=== PATIENT | male | born 1990 | race African-American/Black ===

== ENCOUNTER → 2020-09-12 | Outpatient (CLI) | payer OTHER ==
--- NOTE | 2020-09-14 07:52 | REP ---
INDICATION: INSOMNIA COMPARISON: None. TECHNIQUE: PA and lateral. FINDINGS: The mediastinum and cardiac silhouette are normal. The lung rodriguez are clear and without acute consolidation, effusion, or pneumothorax. The skeletal structures are intact and normal. IMPRESSION: No acute cardiopulmonary process. <Electronically signed by Carlyle Sommer > 09/14/20 [id number]
== END ==
LOC: M RAD 15:34
PROVIDERS: ATTEND Physician Assistant Medical
DX: G47.00 Insomnia, unspecified (principal)

== ENCOUNTER → 2020-10-03 | Outpatient (CLI) | payer OTHER ==
[2020-10-03 11:58] LABS: APPEARANCE, URINE CLEAR (CLEAR); BACTERIA, URINE AUTO 1+ (NEGATIVE); BASO # 0.1 10^3/uL (0.0-0.2); BASO % 1.1 % (0.0-1.0); BILIRUBIN, URINE AUTO NEGATIVE (NEGATIVE); BLOOD, URINE BLOOD NEGATIVE (NEGATIVE); COLOR, URINE YELLOW (YELLOW); EOS # 0.1 10^3/uL (0.0-0.5); EOS % 1.4 % (0.0-3.0); GLUCOSE, URINE (UA) AUTO NEGATIVE (NEGATIVE); HEMATOCRIT 43.1 % (42.0-52.0); HEMOGLOBIN 13.8 g/dl (13.5-17.5); KETONE, URINE AUTO NEGATIVE (NEGATIVE); LEUKOCYTE ESTERASE, URINE AUTO 2+ (NEGATIVE); LYMPH # 2.9 10^3/uL (1.5-5.0); LYMPH % 53.2 % (24.0-44.0); MEAN CORPUSCULAR HEMOGLOBIN 28.2 pg (27.0-33.0); MONO # 0.8 10^3/uL (0.0-0.8); MONO % 14.1 % (0.0-5.0); MUCUS, URINE SMALL (NEGATIVE); NEUTROPHILS # 1.7 10^3/uL (1.5-8.5); NITRITE, URINE AUTO NEGATIVE (NEGATIVE); PLATELET COUNT, AUTOMATED 243 10^3/uL (150-450); PROTEIN, URINE AUTO NEGATIVE (NEGATIVE); RBC, URINE AUTO 2 /HPF (0-3); SPECIFIC GRAVITY URINE AUTO 1.025 (1.002-1.035); SQUAMOUS EPITHELIAL CELL UR AU 5 /HPF (0-6); UROBILINOGEN, URINE AUTO 0.2 mg/dL (0.0-2.0); WBC, URINE AUTO 21 /HPF (0-3); WHITE BLOOD COUNT 5.5 10^3/uL (4.0-10.0)
[2020-10-03 12:28] LABS: ALBUMIN 3.8 GM/DL (3.2-5.2); ALT/SGPT 67 U/L (12-78); BILIRUBIN,TOTAL 0.5 MG/DL (0.2-1.0); BLOOD UREA NITROGEN 14 MG/DL (7-18); CALCIUM LEVEL 9.8 MG/DL (8.5-10.1); CARBON DIOXIDE LEVEL 30 MEQ/L (21-32); CHLORIDE LEVEL 102 MEQ/L (98-107); CREATININE FOR GFR 0.81 MG/DL (0.70-1.30); GLOMERULAR FILTRATION RATE > 60.0 (>60); GLUCOSE, FASTING 93 MG/DL (70-100); POTASSIUM SERUM 4.2 MEQ/L (3.5-5.1); SODIUM LEVEL 136 MEQ/L (136-145); TOTAL PROTEIN 8.6 GM/DL (6.4-8.2)
[2020-10-03 12:47] LABS: HEPATITIS B SURFACE ANTIGEN NEGATIVE (NEGATIVE)
[2020-10-03 13:13] LABS: HEPATITIS C VIRUS ABY INDEX 0.1 INDEX (<0.8)
[2020-10-03 13:14] LABS: HEPATITIS B CORE ANTIBODY IGM NEGATIVE (NEGATIVE)
[2020-10-03 13:17] LABS: HEPATITIS A ANTIBODY IGM NEGATIVE (NEGATIVE)
== END ==
LOC: M LAB 11:19
PROVIDERS: ATTEND Physician Assistant Medical
DX: Z02.2 Encounter for examination for admission to residential institution (principal)

== ENCOUNTER → 2020-12-11 | Outpatient (CLI) | payer OTHER ==
--- NOTE | 2020-12-15 14:54 | SLEEPHOME ---
DIAGNOSTIC HOME SLEEP STUDY DATE: 12/11/2020 ORDERED BY: Rene Montes M.D. Diagnostic home sleep testing was performed due to concern for the obstructive sleep apnea syndrome in this patient with a history of excessive somnolence and morning headaches. For testing, a nocturnal T3 respiratory monitoring device was used. Continuous record was made of pulse, oxygen saturation, air flow, chest and abdominal strain, and body position. 9 hours and 59 minutes of data were reviewed. There were 8 hours and 28 minutes marked as time in bed. During the interval marked time in bed, there were 659 respiratory events identified of 10 seconds in duration or greater for a respiratory event index 77.8. The events were primarily obstructive; however, 182 mixed and central apneas were also seen. Baseline pulse rate 78. Pulse rate range 58 to 120. Baseline saturation was 89%. Saturations fell to 53%. Testing was performed in both the supine and non-supine positions. IMPRESSION: Abnormal home sleep testing, with repetitive respiratory events and oxygen desaturations to 53% with a respiratory event index of 77.8, is consistent with the obstructive sleep apnea syndrome. RECOMMENDATION: The patient should be encouraged to undergo a formal sleep evaluation. Given the occurrence of central apneas, a BiLevel device and backup rate may be necessary for treatment.
== END ==
LOC: M SLEEP HO 11:14
PROVIDERS: ATTEND Internal Medicine Pulmonary Disease
DX: G47.30 Sleep apnea, unspecified (principal)

== ENCOUNTER 2021-02-11 11:18 | Emergency (ER) | payer OTHER ==
[~2021-02-11] VITALS: Ht 185.4 cm; Wt 123.0 kg
[2021-02-11 11:18] VITALS: BP 133/90
[2021-02-11] MEDS ORDERED: GI COCKTAIL 50ML BTL(HYOSCYAMINE/MAALOX/LIDOCAINE VISCOUS)(1:3:1) PO ONE (13:05)
[2021-02-11] MEDS ORDERED: ONDANSETRON 4MG/2ML VIAL IV ONE (13:05)
[2021-02-11 13:13] LABS: BASO % 0.9 % (0.0-1.0); EOS % 0.5 % (0.0-3.0); HEMATOCRIT 42.1 % (42.0-52.0); HEMOGLOBIN 13.7 g/dl (13.5-17.5); LYMPH # 1.8 10^3/uL (1.5-5.0); LYMPH % 39.9 % (24.0-44.0); MEAN CORPUSCULAR HEMOGLOBIN 28.5 pg (27.0-33.0); MEAN CORPUSCULAR HGB CONC 32.5 g/dl (32.0-36.5); MEAN CORPUSCULAR VOLUME 87.5 fl (80.0-96.0); MONO # 0.7 10^3/uL (0.0-0.8); MONO % 15.9 % (2.0-8.0); NEUTROPHILS # 1.9 10^3/uL (1.5-8.5); NEUTROPHILS % 42.6 % (36.0-66.0); PLATELET COUNT, AUTOMATED 255 10^3/uL (150-450); RED BLOOD COUNT 4.81 10^6/uL (4.30-6.10); WHITE BLOOD COUNT 4.4 10^3/uL (4.0-10.0)
[2021-02-11 13:38] LABS: ALBUMIN 3.6 GM/DL (3.2-5.2); ALT/SGPT 101 U/L (12-78); BILIRUBIN,DIRECT 0.1 MG/DL (0.0-0.2); BILIRUBIN,TOTAL 0.5 MG/DL (0.2-1.0); CK-MB VALUE MASS < 1.0 NG/ML (<3.6); CPK CREATINE PHOSPHOKINASE 310 U/L (39-308); LIPASE 97 U/L (73-393); MB/CK RELATIVE INDEX 0.32 (< OR =4); TROPONIN I < 0.02 NG/ML (< 0.10)
[2021-02-11] MEDS ORDERED: KETOROLAC 30 MG/ML 1ML VIAL IV ONE (14:45)
--- NOTE | 2021-02-11 15:19 | REP ---
INDICATION: epigastric pain. COMPARISON: None. FINDINGS: Supine and upright views of the abdomen show the intestinal gas pattern to be nonspecific. Gas and stool is seen throughout the colon within the rectosigmoid region. The organ silhouettes insofar as delineated appear unremarkable. No abdominal calcific densities are seen within the abdomen or pelvis. The accompanying single frontal view of the chest shows no free subdiaphragmatic air, cardiomegaly, infiltrates or effusions. IMPRESSION: Nonspecific intestinal gas pattern. No evidence of an acute abnormality. <Electronically signed by Montana Quintana > 02/11/21 [id number]
--- NOTE | 2021-02-11 15:26 | REP ---
INDICATION: epigastric pain, elevated lfts. FINDINGS: Multiple ultrasonographic images of the liver show diffuse increased echoes throughout the hepatic parenchyma without evidence of a mass or ductal dilatation. The common bile duct measures approximately 5 mm in its greatest transverse dimension. Multiple ultrasonographic images of the gallbladder show no focal or diffuse gallbladder wall thickening. There are no echogenic foci within the gallbladder lumen, which casts acoustic shadows. There is no pericholecystic edema. Images of the pancreatic region show no gross abnormality. The imaged portion of the right kidney is unremarkable. IMPRESSION: Fatty infiltration of the liver. Accredited by the [employer] in General Ultrasound. <Electronically signed by Montana Quintana > 02/11/21 [id number]
[2021-02-11] MEDS ORDERED: ONDA4TAB6 PO (16:14)
[2021-02-11] MEDS ORDERED: CARA1TAB6 PO (16:14)
[2021-02-11] MEDS ORDERED: PROT1TAB2 PO (16:14)
--- NOTE | 2021-02-12 08:06 | ECGEPIP ---
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
== END 2021-02-11 16:55 | disposition home or self-care (01) ==
LOC: M ED 11:18
DX: R10.9 Unspecified abdominal pain (principal); R11.2 Nausea with vomiting, unspecified; K76.0 Fatty (change of) liver, not elsewhere classified
CPT/HCPCS: 74021; 76705; 80047; 80076; 82550; 82553; 83690; 85025; 93005; 96374; 96375; 99284; J1885; J2405

== ENCOUNTER 2021-04-05 17:59 | Inpatient (IN) | payer OTHER ==
[~2021-04-05] VITALS: Ht 188 cm; Wt 123.8 kg
[~2021-04-05 17:59] MED LIST: CARA1TAB6 PO; ONDA4TAB6 PO; PROT1TAB2 PO
[2021-04-05 18:52] LABS: VENOUS HCO3 23.8 MEQ/L (23.0-27.0); VENOUS O2 SATURATION 94.9 % (60.0-80.0); VENOUS PARTIAL PRESSURE CO2 39.8 mmHg (38.0-50.0); VENOUS PARTIAL PRESSURE O2 77.1 mmHg (30.0-50.0); VENOUS PH 7.394 UNITS (7.330-7.430); VENOUS STANDARD HCO3 23.6 MEQ/L
[2021-04-05 18:56] LABS: HEMATOCRIT 39.6 % (42.0-52.0); HEMOGLOBIN 13.1 g/dl (13.5-17.5); MEAN CORPUSCULAR HEMOGLOBIN 28.7 pg (27.0-33.0); MEAN CORPUSCULAR HGB CONC 33.1 g/dl (32.0-36.5); MEAN CORPUSCULAR VOLUME 86.8 fl (80.0-96.0); PLATELET COUNT, AUTOMATED 307 10^3/uL (150-450); RED BLOOD COUNT 4.56 10^6/uL (4.30-6.10); WHITE BLOOD COUNT 8.1 10^3/uL (4.0-10.0)
[2021-04-05] MEDS ORDERED: HumuLIN R (REGULAR) INSULIN (NovoLIN R) **100U/ML** PER UNIT IV ONE (19:15)
[2021-04-05 19:16] LABS: OSMOLALITY SERUM 296 MOSM/KG (275-295)
[2021-04-05 19:40] LABS: ACETONE/KETONE 9.96 MG/DL (<2.81); ALT/SGPT 63 U/L (12-78); BILIRUBIN,DIRECT 0.2 MG/DL (0.0-0.2); BILIRUBIN,TOTAL 0.5 MG/DL (0.2-1.0); LIPASE 297 U/L (73-393); TOTAL PROTEIN 8.2 GM/DL (6.4-8.2)
[2021-04-05 19:59] LABS: ATYPICAL LYMPH 2 % (0-5); BASOPHILS 2 % (0-1); EOSINOPHILS 3 % (0-3); LYMPHOCYTES 26 % (16-44); MONOCYTES 6 % (0-5); NEUTROPHILS 59 % (28-66); PLASMA CELL 1 % (0-0)
[2021-04-05 20:00] LABS: OVALOCYTES 1+; PLATELET ESTIMATE NORMAL (NORMAL); POIKILOCYTOSIS 1+
[2021-04-05] MEDS ORDERED: NS 1,000 ML IV ONE ×2 (20:00→20:05)
[2021-04-05 20:32] LABS: HEMOGLOBIN A1c 9.5 %
--- NOTE | 2021-04-05 20:33 | ECGEPIP ---
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
[2021-04-05] MEDS ORDERED: VANCOMYCIN HCL 1,000 MG in IV FLUID PLACE HOLDER 1 EA IV ONE (20:35)
[2021-04-05] MEDS ORDERED: HOME MED LIST COMPLETE! XX SCH (20:40)
[2021-04-05] MEDS ORDERED: atenoloL 25 MG TAB PO ONE (20:45)
[2021-04-05] MEDS ORDERED: ASPIRIN 81 MG CHEW TABLET PO ONE (20:50)
[2021-04-05] MEDS ORDERED: VANCOMYCIN HCL 1,000 MG, VIAL MATE ADAPTER 1 EACH in NS 250 ML IV ONE (21:00)
--- NOTE | 2021-04-05 21:53 | REPVR ---
PROCEDURE INFORMATION: Exam: US Duplex Left Lower Extremity Veins, Limited Exam date and time: 04/05/2021 9:01 PM Age: 30 years old Clinical indication: Swelling (edema) of limb; Lower extremity, left TECHNIQUE: Imaging protocol: Real-time Duplex ultrasound of the Left Lower Extremity with 2-D balderas scale, color Doppler flow and spectral waveform analysis with image documentation. Limited exam focused on the left lower extremity veins. COMPARISON: No relevant prior studies available. FINDINGS: Left deep veins: Unremarkable. The common femoral, femoral, proximal profunda femoral and popliteal veins are patent without thrombus. Normal Doppler waveforms. Normal compressibility and/or augmentation response. Left superficial veins: Unremarkable. Saphenofemoral junction is patent without thrombus. Soft tissues: Unremarkable. IMPRESSION: No evidence of deep vein thrombosis. Electronically signed by: Abram Talley On 04/05/2021 21:52:44 PM
[2021-04-05 22:27] LABS: RSV AMPLIFICATION NEGATIVE (NEGATIVE)
[2021-04-05] MEDS ORDERED: INSULIN REGULAR IN 0.9 % NACL 100 UNIT in IV 1 EA IV SCH ×2 (23:15)
[2021-04-05] MEDS ORDERED: VANCOMYCIN HCL 1,000 MG, VIAL MATE ADAPTER 1 EACH in NS 250 ML IV SCH (23:15)
[2021-04-05] MEDS: RIVAROXABAN 20 MG TAB (XARELTO) PO SCH (23:15)
--- NOTE | 2021-04-05 23:24 | HPEPDOC ---
[facility] Medical History & Physical Date of Admission Apr 05, 2021 Date of Service: Apr 05, 2021 History and Physical CHIEF COMPLAINT: Left leg pain and swelling HISTORY OF PRESENT ILLNESS: 22-year-old male with history of insulin dependent diabetes, atrial flutter, NURIS (not on CPAP), blindness in the left eye, status post trauma, presented to the ER with a 4 day history of worsening swelling and redness and pain of the left lateral leg after he developed folliculitis with acne that was popped by his girlfriend. He has similar presentation of his right leg swelling of the left leg is much more pronounced. Venous ultrasound in the ER shows no evidence for deep vein thrombosis. Patient was also found to have blood sugars of 530 with elevated ketones. Patient had initial gap of 19, with a pH 7.3 on ABG. Patient received 12 units of regular insulin. However, blood sugars remained in the 400s. Decision was to place patient on insulin infusion and admitted to ICU for titration. She was started on IV vancomycin for sylvie atment of synovitis of the left lower extremity, which likely precipitated the HHS. Patient was admitted to ICU for the management of age at bedtime and encephalitis. Of note, EKG showing atrial flutter with a rate of 110. ER contacted Dr. Bernardo recommended starting atenolol 25 mg. The patient reports having a prior history of atrial flutter and he underwent a cardioversion at [facility] in [place], [place] and was anticoagulated with Xarelto. He has not been on blood thinner for over a year. Dr. Bernardo recommended started back on Xarelto, despite having a low CHADSVASC score, as patient has other RF including NURIS and obesity. PAST MEDICAL HISTORY: IDDM NURIS A flutter s/p cardioversion, not on AC Blind in L eye, s/p trauma, retinal detachment. PAST SURGICAL HISTORY: L eye retinal detachment, repain SOCIAL HISTORY: smokes occasionally denies illicit drug use occasional etoh use FAMILY HISTORY: reviewed with patient, no pertinent history was provided ALLERGIES: Please see below. REVIEW OF SYSTEMS: 10 point ROS conducted, relevant findings are noted in the HPI. HOME MEDICATIONS: Please see below. PHYSICAL EXAMINATION: VITAL SIGNS: please see below General: NAD, comfortable HEENT: PERRLA, EOMI, sclerae clear Neck: supple, normal ROM, no JVD Respiratory: lungs CTAB, no wheeze, no rales, no crackles CVS: RRR, normal S1, S2, no murmurs Abdo: soft, no masses, no hepatosplenomegaly, BS+, no rebound tenderness Extremities: no edema, pulses 2+ MSK: no joint deformities, normal ROM Neuro: no focal neuro deficits, moving all 4 extremities, CN2-12 intact. Strength 5/5 in all 4 extremities. No nystagmus. Psych: calm, cooperative, AAO x 3 LABORATORY DATA: See below. IMAGING: L venous duplex LE (04/05/21): No evidence of deep vein thrombosis. MICROBIOLOGY: Please see below. ASSESSMENT: 30 yo M with a hx of IDDM (uncontrolled), NURIS, A flutter (not on AC, s/p cardioversion), presented with a 4 day hx of L leg swelling, pain, redness. Found to have BG > 550 in ER. EKG showing a flutter, rate 110. Admitted for HHS, 2/[address] Bernardo recommending atenolol and to start xarelto with referal to cardiology for outpatient cardiac ablation. . PLAN: #HHS - non compliant with insulin, eating lots of sugary foods - precipitated by cellulitis - AG 19. BG > 400 s/p 12 units reg insulin - start Insulin ggt, admit to ICU - BMP, mg, phos q4h - 0.45% NS at 200 cc/hr - CC diet - will bridge with levemir once BG < 250. #Cellulitis of LLE - L leg, popped his folliculitis/acne - started on IV vanco - venous duplex shows no DVT in L leg #A flutter - Rate 110 in ER, EKG showing aflutter - has prior hx, no long on AC - D/w Dr. Bernardo. Give atenolol 25 mg daily, can titrate to 50 mg daily - start xarelto, even though low CHADSVASC score - will need referral to cardiology for ablation #NURIS - ordered Noc Ox - had home sleep study, needs formal eval per Dr. Dietz's note - titrate O2 overnight. DVT ppx: started on xarelto. Vital Signs Vital Signs Date Time Temp Pulse Resp B/P (MAP) Pulse Ox O2 Delivery O2 Flow Rate FiO2 04/05/21 22:08 92 15 100 Room Air 04/05/21 22:00 134/92 (106) 04/05/21 19:56 99.3 Laboratory Data Labs 24H Laboratory Tests 2 04/05/21 18:32: Neutrophils (%) (Auto) , Nucleated Red Blood Cells % (auto) 0.0, Neutrophils 59, Band Neutrophils 1, Lymphocytes (Manual) 26, Monocytes (Manual) 6H, Eosinophils (Manual) 3, Basophils (Manual) 2H, Atypical Lymphocytes 2, Plasma Cells 1H, Poikilocytosis 1+, Ovalocytes 1+, Platelet Estimate NORMAL, Urine Color STRAW, Urine Appearance CLEAR, Urine pH 6.0, Urine Specific [place] 1.029, Urine Protein NEGATIVE, Urine Glucose (UA) 3+H, Urine Ketones 1+H, Urine Blood 1+H, Urine Nitrite NEGATIVE, Urine Bilirubin NEGATIVE, Urine Urobilinogen 0.2, Urine Leukocyte Esterase NEGATIVE, Urine WBC (Auto) 0, Urine RBC (Auto) 1, Urine Hyaline Casts (Auto) 0, Urine Bacteria (Auto) NEGATIVE, Urine Squamous Epithelial Cells 0, Urine Sperm (Auto) , Blood Gas Bicarbonate Standard 23.6, Venous Blood pH 7.394, Venous Blood Partial Pressure CO2 39.8, Venous Blood Partial Pressure O2 77.1H, Venous Blood Total Carbon Dioxide 25.0, Venous Blood HCO3 23.8, Venous Blood Oxygen Saturation 94.9H, Venous Blood Base Excess -1.0, Estimated Mean Plasma Glucose 226H, Hemoglobin A1c 9.5, Osmolality 296H, Total Bilirubin 0.5, Direct Bilirubin 0.2, Aspartate Amino Transf (AST/SGOT) 54H, Alanine Aminotransferase (ALT/SGPT) 63, Alkaline Phosphatase 70, Total Protein 8 .2, Albumin 3.0L, Albumin/Globulin Ratio 0.6, Lipase 297, B-Hydroxybutyrate 9.96H 04/05/21 18:49: POC Glucose (Misc Panel) 559*H, POC Sodium (Misc Panel) 129L, POC Potassium (Misc Panel) 4.8, POC Chloride (Misc Panel) 94L, POC Total CO2 (Misc Panel) 23.0, POC Blood Urea Nitrogen (Misc Panel 16, POC Ionized Calcium (Misc Panel) 4.3L, POC Creatinine (Misc Panel) 0.7, POC Hematocrit (Misc Panel) 42.0 04/05/21 19:38: Bedside Glucose (Misc Panel) 494H 04/05/21 20:42: Bedside Glucose (Misc Panel) 456H 04/05/21 21:24: Coronavirus (COVID-19)(PCR) NEGATIVE, Influenza Type A (RT-PCR) NEGATIVE, Influenza Type B (RT-PCR) NEGATIVE, Respiratory Syncytial Virus (PCR) NEGATIVE CBC/BMP Laboratory Tests 04/05/21 18:32 Microbiology Microbiology 04/05/21 Blood Culture, Received Pending 04/05/21 Blood Culture, Received Pending Home Medications No Active Prescriptions or Reported Meds Allergies Coded Allergies: No Known Drug Allergies (Verified Allergy, Unknown, 02/11/21) BRENDA GARY MD Apr 05, 2021 23:24
[2021-04-05 23:50] LABS: BLOOD UREA NITROGEN 13 MG/DL (7-18); GLUCOSE, FASTING 531 MG/DL (70-100)
[2021-04-05 23:51] LABS: CALCIUM LEVEL 8.1 MG/DL (8.5-10.1); CARBON DIOXIDE LEVEL 21 MEQ/L (21-32); CHLORIDE LEVEL 97 MEQ/L (98-107); CREATININE FOR GFR 0.94 MG/DL (0.70-1.30); GLOMERULAR FILTRATION RATE > 60.0 (>60); MAGNESIUM LEVEL 2.1 MG/DL (1.8-2.4); POTASSIUM SERUM 4.4 MEQ/L (3.5-5.1); SODIUM LEVEL 128 MEQ/L (136-145)
[2021-04-05] MEDS: NS 0.45% 1,000 ML IV SCH (23:52)
[2021-04-06] VITALS (8 sets, daily range): BP systolic 112–142; BP diastolic 69–81
[2021-04-06 00:35] LABS: INR 1.01; PROTHROMBIN TIME 13.7 SECONDS (12.7-14.5)
[2021-04-06] MEDS: NS 0.45% 1,000 ML IV SCH ×2 (00:58→08:07)
[2021-04-06] MEDS: VANCOMYCIN HCL 750 MG, VIAL MATE ADAPTER 1 EACH in NS 250 ML IV SCH ×6 (01:07→17:39)
[2021-04-06 02:32] LABS: BLOOD UREA NITROGEN 11 MG/DL (7-18); CALCIUM LEVEL 7.9 MG/DL (8.5-10.1); CARBON DIOXIDE LEVEL 25 MEQ/L (21-32); CHLORIDE LEVEL 101 MEQ/L (98-107); CREATININE FOR GFR 0.79 MG/DL (0.70-1.30); GLOMERULAR FILTRATION RATE > 60.0 (>60); GLUCOSE, FASTING 340 MG/DL (70-100); MAGNESIUM LEVEL 2.2 MG/DL (1.8-2.4); PHOSPHORUS LEVEL 2.4 MG/DL (2.5-4.9); POTASSIUM SERUM 3.7 MEQ/L (3.5-5.1); SODIUM LEVEL 133 MEQ/L (136-145)
[2021-04-06] MEDS: INSULIN IV RATE CHANGE DOCUMENTATION ML/HR XX SCH ×4 (04:14→10:52)
[2021-04-06 05:37] LABS: BLOOD UREA NITROGEN 10 MG/DL (7-18); CALCIUM LEVEL 7.8 MG/DL (8.5-10.1); CARBON DIOXIDE LEVEL 26 MEQ/L (21-32); CHLORIDE LEVEL 103 MEQ/L (98-107); GLOMERULAR FILTRATION RATE > 60.0 (>60); GLUCOSE, FASTING 286 MG/DL (70-100); MAGNESIUM LEVEL 2.2 MG/DL (1.8-2.4); PHOSPHORUS LEVEL 2.7 MG/DL (2.5-4.9); POTASSIUM SERUM 4.1 MEQ/L (3.5-5.1); SODIUM LEVEL 135 MEQ/L (136-145)
[2021-04-06] MEDS ORDERED: atenoloL 25 MG TAB PO SCH (09:00)
[2021-04-06] MEDS: LEVEMIR (INSULIN DETEMIR) 1 UNITS/0.01ML SC SCH (09:46)
[2021-04-06 10:25] LABS: BLOOD UREA NITROGEN 10 MG/DL (7-18); CALCIUM LEVEL 8.3 MG/DL (8.5-10.1); CARBON DIOXIDE LEVEL 24 MEQ/L (21-32); CHLORIDE LEVEL 103 MEQ/L (98-107); CREATININE FOR GFR 0.76 MG/DL (0.70-1.30); GLOMERULAR FILTRATION RATE > 60.0 (>60); GLUCOSE, FASTING 312 MG/DL (70-100); MAGNESIUM LEVEL 2.1 MG/DL (1.8-2.4); PHOSPHORUS LEVEL 2.7 MG/DL (2.5-4.9); POTASSIUM SERUM 3.7 MEQ/L (3.5-5.1); SODIUM LEVEL 134 MEQ/L (136-145)
[2021-04-06 10:42] LABS: THYROID STIMULATING HORMONE 0.826 uIU/ML (0.358-3.740)
--- NOTE | 2021-04-06 13:03 | REP ---
INDICATION: r/o abscess left calf lower leg area. COMPARISON: None. TECHNIQUE: Ultrasonography of the lateral aspect of the left calf in area of redness and swelling. FINDINGS: Ultrasonography at the lateral left calf identifies diffuse subcutaneous soft tissue edema in the proximal, mid and distal lateral calf. Additionally, at the lateral mid calf level there are 2 fluid collections at the skin surface, clinically appearing as blisters, measurin.9 x 0.4 x 1.0 cm and 0.9 x 0.4 x 0.5 cm. IMPRESSION: Diffuse subcutaneous soft tissue edema of the left calf laterally. At the left mid calf laterally there are 2 superficial fluid collections, clinically appearing as blisters, as described above. No other focal fluid collections are identified. <Electronically signed by Clive Dow > 04/06/21 0154
[2021-04-06] MEDS: HumaLOG INSULIN (NovoLOG) PER UNIT SC SCH ×3 (13:05→22:34)
--- NOTE | 2021-04-06 13:56 | IPNPDOC ---
Text Note Date of Service The patient was seen on 04/06/21. NOTE S: Pt seen and evaluated at bedside this AM. He tells me he "feels fine." Repo rts unimproved LLE soreness. He tells me he has not formally been diagnosed w/ diabetes and was not put on insulin or medication for it. Denies hx IV drug use. Denies chest pain, palpitations, SOB, tremors, perspiration, lightheadedness. O: GEN: laying in bed, alert and awake, NAD HEENT: NC/AT, EOMI, nares patent, dry mucous membranes CARDIO: normal heart sounds, RRR, no MRG PULM: CTA b/l, no WRR, no accessory muscles used ABD: decreased BS, soft, nontender, nondistended EXTREMITIES: normal ROM; LLE 2+ pitting edema, multiple sites of active folliculitis w/ bloody discharge along lateral LLE, redness, warm, no crepitus or soft tissue abscesses appreciated; RLE edema, multiple sites of active folliculitis w/out discharge, warm, no redness IMAGING: Duplex vascular u/s LLE No evidence of deep vein thrombosis Nonvascular LLE u/s Diffuse subcutaneous soft tissue edema of the left calf laterally. At the left mid calf laterally there are 2 superficial fluid collections, clinically appearing as blisters, as described above. No other focal fluid collections are identified. A/P: 30M PMH DM2 (uncontrolled), NURIS (noncompliant CPAP), Aflutter s/p cardioversion, w/ acute cellulitis LLE on IV vancomycin day1, found to have fasting glucose 531 (04/05) which has improved to 286 following insulin drip 100ml/hr x12hrs. #Hyperosmolar Hyperglycemic Syndrome, most likely 2/2 noncompliant insulin use, acute infxn- improving On insulin drip. Will bridge to levemir Start levemir 60U Monitor labs, FSBS #Acute cellulitis LLE s/p trauma to folliculitis acne Blood cx pending Wound cx pending LLE soft tissue u/s as noted above On IV vancomycin, day1 #Aflutter s/p cardioversion- rate poorly controlled Pt continues to go in and out of tachycardia (88-110bpm) TSH 0.826 Start Metoprolol D/c Atenolol On Xarelto. CHADsVASc score 1. Consider ablation if worsening Aflutter #NURIS Titrate nocturnal O2 overnight Pt needs formal sleep study, per Dr. Dietz #DVT Prophylaxis On Xarelto DISPO: transfer to PCU status, pending titrate off insulin drip Activity as tolerated Diabetic diet VS,Fishbone, I+O VS, Fishbone, I+O Laboratory Tests 04/05/21 18:32 04/06/21 02:02 04/06/21 04:56 04/06/21 09:50 Vital Signs Date Time Temp Pulse Resp B/P (MAP) Pulse Ox O2 Delivery O2 Flow Rate FiO2 04/06/21 09:31 110 112/81 04/06/21 08:00 97.0 20 98 Room Air I&O- Last 24 Hours up to 6 AM 04/06/21 06:00 Intake Total 1930 ml Output Total 800 ml Balance 1130 ml Sena Barker DO Apr 06, 2021 13:56
[2021-04-06] MEDS: RIVAROXABAN 20 MG TAB (XARELTO) PO SCH (17:38)
[2021-04-06] MEDS ORDERED: METOPROLOL TART 12.5 MG PER 1/2 TAB PO SCH (21:00)
[2021-04-06] MEDS: METOPROLOL TART 25 MG TABLET PO SCH (22:34)
[2021-04-07] VITALS (7 sets, daily range): BP systolic 117–139; BP diastolic 72–89
--- NOTE | 2021-04-07 00:51 | ECHO ---
ECHOCARDIOGRAM DATE OF PROCEDURE: 04/06/2021 Age: 30 Gender: Male Height: 188 cm Weight: 118 kg REFERRING PHYSICIAN: Dr. Galileo Storm INDICATION: Cardiac dysrhythmia MEASUREMENTS: IVS 1.3 cm LV 5.0 cm LVPW 1.3 cm LA 3.7 cm Aorta 3.5 cm LA volume 27 FINDINGS: This study is of good technical quality. Patient is in atrial flutter with controlled ventricular rate. Left ventricle is normal size. Mild left ventricular hypertrophy is noted. Overall normal LV systolic function with estimated EF around 60 to 65%. Normal RV size and systolic function. Both atria are normal. All four cardiac valves were reasonably well seen and appear normal based on 2D imaging. No pericardial effusion. Inferior vena cava was not seen. Aortic root and aortic arch were normal. Abdominal aorta was not visualized. Doppler interrogation reveals competent aortic, mitral and pulmonic valves. There is trace tricuspid insufficiency. Normal pulmonary artery pressure based on fair quality TR jet. Diastolic function was not evaluated due to underlying atrial flutter. CONCLUSIONS: 1. Study is of good technical quality, underlying atrial flutter with controlled ventricular rate. 2. Normal LV size with normal LV systolic function. 3. Normal RV size and systolic function. 4. No significant valvular disease. 5. Unable to estimate central venous pressure, but likely normal pulmonary artery pressure.
[2021-04-07] MEDS: VANCOMYCIN HCL 750 MG, VIAL MATE ADAPTER 1 EACH in NS 250 ML IV SCH ×6 (01:23→18:24)
[2021-04-07] MEDS: HumaLOG INSULIN (NovoLOG) PER UNIT SC SCH ×4 (07:43→20:59)
[2021-04-07 08:25] LABS: HEMATOCRIT 40.2 % (42.0-52.0); HEMOGLOBIN 13.2 g/dl (13.5-17.5); MEAN CORPUSCULAR HEMOGLOBIN 28.2 pg (27.0-33.0); MEAN CORPUSCULAR HGB CONC 32.8 g/dl (32.0-36.5); MEAN CORPUSCULAR VOLUME 85.9 fl (80.0-96.0); PLATELET COUNT, AUTOMATED 317 10^3/uL (150-450); RED BLOOD COUNT 4.68 10^6/uL (4.30-6.10); WHITE BLOOD COUNT 5.9 10^3/uL (4.0-10.0)
[2021-04-07] MEDS: METOPROLOL TART 25 MG TABLET PO SCH (08:32)
[2021-04-07] MEDS: LEVEMIR (INSULIN DETEMIR) 1 UNITS/0.01ML SC SCH (08:33)
--- NOTE | 2021-04-07 08:43 | IPNPDOC ---
Text Note Date of Service The patient was seen on 04/07/21. NOTE S: Pt seen and evaluated at bedside this AM. Reports improved LLE soreness w/ better mobility. He tells me he was +MRSA following nasal swab 5-6yrs ago, but cannot recall abx he was treated w/ at the time. Denies prior cellulitis infxn. Denies fevers/chills, chest pain, palpitations, SOB, tremors, perspiration, lightheadedness. O: GEN: sitting on edge of bed eating breakfast, alert and awake, NAD HEENT: NC/AT, EOMI, nares patent, dry mucous membranes CARDIO: normal heart sounds, RRR, no MRG PULM: CTA b/l, no WRR, no accessory muscles used ABD: normal BS, soft, nontender, nondistended EXTREMITIES: normal ROM; LLE 2+ pitting edema, multiple sites of active folliculitis w/ serosanguinous discharge along lateral LLE, redness, no warmth/crepitus/soft tissue abscesses appreciated; RLE edema, multiple sites of active folliculitis w/out discharge/warmth/redness IMAGING: Duplex vascular u/s LLE (04/05) No evidence of deep vein thrombosis Nonvascular LLE u/s (04/06) Diffuse subcutaneous soft tissue edema of the left calf laterally. At the left mid calf laterally there are 2 superficial fluid collections, clinically appearing as blisters, as described above. No other focal fluid collections are identified. Echocardiogram (04/06) Report pending A/P: 30M PMH DM2 (uncontrolled), NURSI (noncompliant CPAP), Aflutter s/p cardioversion, MRSA+, w/ acute cellulitis LLE on IV vancomycin day2 w/ improved sx, found to have poorly controlled BS now on 40 Levemir BID and insulin SS. #Hyperosmolar Hyperglycemic Syndrome, most likely 2/2 noncompliant insulin use, acute infxn- RESOLVED #Hyperglycemia 2/2 DM1 vs DM1.5 vs DM2- poorly controlled Pt remains hyperglycemic w/ BS 305 On Levemir 40BID, insulin SS Ab (anti islet, antiu [id number], anti znt8) w/u pending Monitor labs #Acute cellulitis LLE s/p trauma to folliculitis acne- improving Prelim blood cx (24hrs) negative Wound cx pending LLE soft tissue u/s as noted above On IV vancomycin, day2 Recommend keeping b/l LE elevated to min swelling Pt's cellutlitis infxn marked and monitored #Aflutter s/p cardioversion- rate poorly controlled Pt in and out of 2:1 Aflutter w/ HR 130-140 w/ standing Echo wnl, LVEF 65%, report pending TSH 0.826 On Metoprolol 50 BID, w/ hold parameters HR <60 Start Eliquis D/c Xarelto. CHADsVASc score 1 Repeat EKG Urine tox screen pending Cardiology consult outpt- consider cardioversion/ablation due to uncontrolled Aflutter #MRSA+ VIP status #NURIS Titrate nocturnal O2 overnight Pt needs formal sleep study, per Dr. Dietz #DVT Prophylaxis Start Eliquis D/c Xarelto DISPO: PCU, pending clinical improvement Activity as tolerated Diabetic diet VS,Fishbone, I+O VS, Fishbone, I+O Laboratory Tests 04/06/21 09:50 04/07/21 08:14 Vital Signs Date Time Temp Pulse Resp B/P (MAP) Pulse Ox O2 Delivery O2 Flow Rate FiO2 04/07/21 08:32 141 119/73 04/07/21 08:00 96.9 18 97 Room Air I&O- Last 24 Hours up to 6 AM 04/07/21 06:00 Intake Total 5830 ml Output Total 1325 ml Balance 4505 ml Sena Barker DO Apr 07, 2021 08:43
[2021-04-07 08:50] LABS: BLOOD UREA NITROGEN 8 MG/DL (7-18); CALCIUM LEVEL 9.2 MG/DL (8.5-10.1); CARBON DIOXIDE LEVEL 25 MEQ/L (21-32); CHLORIDE LEVEL 102 MEQ/L (98-107); CREATININE FOR GFR 0.73 MG/DL (0.70-1.30); GLOMERULAR FILTRATION RATE > 60.0 (>60); GLUCOSE, FASTING 305 MG/DL (70-100); POTASSIUM SERUM 4.3 MEQ/L (3.5-5.1); SODIUM LEVEL 133 MEQ/L (136-145); VANCOMYCIN LEVEL TROUGH 11.8 UG/ML (10.0-20.0)
[2021-04-07] MEDS ORDERED: LEVEMIR (INSULIN DETEMIR) 1 UNITS/0.01ML SC ONE (09:00)
[2021-04-07 09:37] LABS: ATYPICAL LYMPH 5 % (0-5); BASOPHILS 1 % (0-1); EOSINOPHILS 2 % (0-3); LYMPHOCYTES 37 % (16-44); MONOCYTES 2 % (0-5); NEUTROPHILS 53 % (28-66)
[2021-04-07 09:38] LABS: ANISOCYTOSIS 1+; PLATELET ESTIMATE NORMAL (NORMAL); POLYCHROMASIA 1+
[2021-04-07] MEDS ORDERED: METOPROLOL TART 25 MG TABLET PO ONE (11:05)
[2021-04-07 12:36] LABS: AMPHETAMINES LEVEL URINE NEGATIVE (NEGATIVE); BARBITURATES URINE NEGATIVE (NEGATIVE); BENZODIAZEPINES URINE NEGATIVE (NEGATIVE); CANNABINOIDS URINE NEGATIVE (NEGATIVE); COCAINE METABOLITE URINE NEGATIVE (NEGATIVE); METHADONE URINE NEGATIVE (NEGATIVE); OPIATES URINE NEGATIVE (NEGATIVE); PHENCYCLIDINE URINE NEGATIVE (NEGATIVE)
--- NOTE | 2021-04-07 17:08 | REP ---
INDICATION: swelling s/p IV infiltration. COMPARISON: None. TECHNIQUE: Duplex exam veins right upper extremity FINDINGS: No evidence of deep venous thrombosis above or below the elbow. IMPRESSION: Negative venous duplex examination of right upper extremity. <Electronically signed by Nikolai Davalos > 04/07/21 [id number]
[2021-04-07] MEDS: METOPROLOL TART 50 MG TAB PO SCH (20:57)
[2021-04-07] MEDS: APIXABAN 5 MG TAB (ELIQUIS) PO SCH (20:57)
[2021-04-07] MEDS ORDERED: LEVEMIR (INSULIN DETEMIR) 1 UNITS/0.01ML SC SCH (21:00)
[2021-04-08] VITALS: BP 129/84
[2021-04-08] MEDS: VANCOMYCIN HCL 750 MG, VIAL MATE ADAPTER 1 EACH in NS 250 ML IV SCH ×3 (02:11→10:35)
[2021-04-08 04:00] VITALS: BP 134/79
[2021-04-08 05:26] LABS: BASO % 0.7 % (0.0-1.0); EOS # 0.2 10^3/uL (0.0-0.5); EOS % 2.6 % (0.0-3.0); HEMATOCRIT 37.7 % (42.0-52.0); HEMOGLOBIN 12.3 g/dl (13.5-17.5); LYMPH # 2.3 10^3/uL (1.5-5.0); LYMPH % 37.5 % (24.0-44.0); MEAN CORPUSCULAR HEMOGLOBIN 28.1 pg (27.0-33.0); MEAN CORPUSCULAR HGB CONC 32.6 g/dl (32.0-36.5); MEAN CORPUSCULAR VOLUME 86.1 fl (80.0-96.0); MONO # 0.6 10^3/uL (0.0-0.8); MONO % 9.4 % (2.0-8.0); NEUTROPHILS % 49.1 % (36.0-66.0); PLATELET COUNT, AUTOMATED 276 10^3/uL (150-450); RED BLOOD COUNT 4.38 10^6/uL (4.30-6.10); WHITE BLOOD COUNT 6.1 10^3/uL (4.0-10.0)
[2021-04-08 05:44] LABS: BLOOD UREA NITROGEN 11 MG/DL (7-18); CALCIUM LEVEL 8.5 MG/DL (8.5-10.1); CARBON DIOXIDE LEVEL 28 MEQ/L (21-32); CHLORIDE LEVEL 101 MEQ/L (98-107); CREATININE FOR GFR 0.75 MG/DL (0.70-1.30); GLOMERULAR FILTRATION RATE > 60.0 (>60); GLUCOSE, FASTING 347 MG/DL (70-100); POTASSIUM SERUM 3.9 MEQ/L (3.5-5.1); SODIUM LEVEL 134 MEQ/L (136-145)
[2021-04-08 08:00] VITALS: BP 135/88
--- NOTE | 2021-04-08 08:30 | ECGEPIP ---
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
[2021-04-08] MEDS ORDERED: LEVEMIR (INSULIN DETEMIR) 1 UNITS/0.01ML SC SCH (09:00)
[2021-04-08] MEDS: LEVEMIR (INSULIN DETEMIR) 1 UNITS/0.01ML SC SCH ×2 (09:09→20:39)
[2021-04-08] MEDS: HumaLOG INSULIN (NovoLOG) PER UNIT SC SCH ×5 (09:10→17:40)
[2021-04-08] MEDS: METOPROLOL TART 50 MG TAB PO SCH (09:11)
[2021-04-08] MEDS: APIXABAN 5 MG TAB (ELIQUIS) PO SCH ×2 (09:11→20:38)
--- NOTE | 2021-04-08 09:21 | IPNPDOC ---
Text Note Date of Service The patient was seen on 04/08/21. NOTE S: Pt seen and evaluated at bedside this AM. Reports continued improvement in LLE soreness w/ better mobility. He tells me he is interested in leaving [the hospital] today and believes his BS would be better controlled outpatient w/ physical activity. Denies fevers/chills, chest pain, palpitations, SOB, tremors, perspiration, lightheadedness. O: GEN: laying in bed, alert and awake, NAD HEENT: NC/AT, EOMI, nares patent, moist mucous membranes CARDIO: normal heart sounds, irregular rhythm, no MRG PULM: CTA b/l, no WRR, no accessory muscles used ABD: normal BS, soft, nontender, nondistended EXTREMITIES: normal ROM; LLE 1+ pitting edema, multiple sites of folliculitis w/ out bleeding/discharge along lateral LLE, redness improved from marked redness (04/07), no warmth/crepitus/soft tissue abscesses appreciated; RLE edema, multiple sites of active folliculitis w/out discharge/bleeding/warmth/redness IMAGING: Duplex vascular u/s LLE (04/05) No evidence of deep vein thrombosis Nonvascular LLE u/s (04/06) Diffuse subcutaneous soft tissue edema of the left calf laterally. At the left mid calf laterally there are 2 superficial fluid collections, clinically appearing as blisters, as described above. No other focal fluid collections are identified. Echocardiogram (04/06) Report pending Duplex vascular u/s RUE (04/07) Negative venous duplex examination of right upper extremity. A/P: 30M PMH DM2 (uncontrolled), NURIS (noncompliant CPAP), Aflutter s/p cardioversion, MRSA+, w/ acute cellulitis LLE on IV vancomycin day3 w/ improved sx, found to have poorly controlled BS on Levemir 40 BID and insulin SS. #Hyperosmolar Hyperglycemic Syndrome, most likely 2/2 noncompliant insulin use, acute infxn- RESOLVED #Hyperglycemia 2/2 DM1 vs DM1.5 vs DM2- poorly controlled Pt remains asx hyperglycemic w/ BS 347, having received 111U insulin (levemir, humalog) 04/07 Start Levemir 50 BID Start Humalog 10 TID (before meals) On Insulin SS Q6H Ab (anti islet, antiu [id number], anti znt8) w/u pending Monitor labs #Acute cellulitis LLE s/p trauma to folliculitis acne- improving Prelim blood cx (48hrs) negative Wound cx pending LLE soft tissue u/s as noted above Start Bactrim 2tab BID, day1 D/c IV vancomycin Recommend keeping b/l LE elevated to min swelling Pt's cellutlitis infxn marked and monitored #Aflutter s/p cardioversion- rate poorly controlled Pt w/ consistent 2:1 Aflutter w/ HR 130 @ 0200 today. HR 82-91 otherwise. EKG (04/07) significant for LVH. Echo (04/06) wnl, LVEF 65%, report pending Urine tox screen negative. TSH 0.826 Start Metoprolol 100 BID, w/ hold parameters HR <60. Spoke w/ Dr. Eastman about possible ablation. He does not recommend cardioversion at this time since pt continues to go in and out of Aflutter. Recommends ablation in future, when infxn resolved. On Eliquis. CHADsVASc score 1. Cardiology consult (Dr. Eastman) upon d/c- recommend ablation due to uncontrolled Aflutter #MRSA+ VIP status #NURIS Noncompliant w/ CPAP Titrate nocturnal O2 overnight Pt needs formal sleep study, per Dr. Dietz #DVT Prophylaxis On Eliquis DISPO: pending better control BS, HR, possible D/c home tomorrow Activity as tolerated Diabetic diet VS,Fishbone, I+O VS, Fishbone, I+O Laboratory Tests 04/08/21 04:54 Vital Signs Date Time Temp Pulse Resp B/P (MAP) Pulse Ox O2 Delivery O2 Flow Rate FiO2 04/08/21 09:11 92 135/88 04/08/21 08:00 97.5 18 95 Room Air I&O- Last 24 Hours up to 6 AM 04/08/21 06:00 Intake Total 3305 ml Output Total 4625 ml Balance -1320 ml Sena Barker DO Apr 08, 2021 09:21
[2021-04-08] MEDS ORDERED: METOPROLOL TART 50 MG TAB PO ONE (10:10)
[2021-04-08] MEDS ORDERED: ELIQ5TAB PO (11:40)
[2021-04-08] MEDS ORDERED: HumaLOG INSULIN (NovoLOG) PER UNIT SC SCH (12:00)
[2021-04-08 12:28] VITALS: BP 134/84
[2021-04-08] MEDS: BACTRIM 160MG/800MG DS TAB PO SCH ×2 (12:32→20:37)
[2021-04-08 17:06] VITALS: BP 145/94
[2021-04-08] MEDS ORDERED: GLUCMIS7 XX (17:18)
[2021-04-08] MEDS ORDERED: ASSU1MIS54 XX (17:24)
[2021-04-08] MEDS ORDERED: LANC1COM MC (17:24)
[2021-04-08] MEDS ORDERED: ALCO1MED8 XX (17:24)
[2021-04-08 20:00] VITALS: BP 135/83
[2021-04-08] MEDS: METOPROLOL TARTRATE 100 MG TAB PO SCH (20:39)
[2021-04-09] VITALS: BP 156/77
[2021-04-09] MEDS: HumaLOG INSULIN (NovoLOG) PER UNIT SC SCH ×5 (00:10→12:48)
[2021-04-09 04:00] VITALS: BP 142/82
[2021-04-09 05:51] LABS: BASO % 0.6 % (0.0-1.0); EOS # 0.2 10^3/uL (0.0-0.5); EOS % 2.8 % (0.0-3.0); HEMATOCRIT 40.8 % (42.0-52.0); HEMOGLOBIN 13.3 g/dl (13.5-17.5); LYMPH # 2.8 10^3/uL (1.5-5.0); LYMPH % 44.2 % (24.0-44.0); MEAN CORPUSCULAR HEMOGLOBIN 28.2 pg (27.0-33.0); MEAN CORPUSCULAR HGB CONC 32.6 g/dl (32.0-36.5); MEAN CORPUSCULAR VOLUME 86.6 fl (80.0-96.0); MONO # 0.6 10^3/uL (0.0-0.8); MONO % 9.5 % (2.0-8.0); NEUTROPHILS # 2.7 10^3/uL (1.5-8.5); NEUTROPHILS % 42.4 % (36.0-66.0); PLATELET COUNT, AUTOMATED 309 10^3/uL (150-450); RED BLOOD COUNT 4.71 10^6/uL (4.30-6.10); WHITE BLOOD COUNT 6.3 10^3/uL (4.0-10.0)
[2021-04-09 06:12] LABS: BLOOD UREA NITROGEN 9 MG/DL (7-18); CALCIUM LEVEL 8.6 MG/DL (8.5-10.1); CARBON DIOXIDE LEVEL 28 MEQ/L (21-32); CHLORIDE LEVEL 101 MEQ/L (98-107); CREATININE FOR GFR 0.86 MG/DL (0.70-1.30); GLOMERULAR FILTRATION RATE > 60.0 (>60); GLUCOSE, FASTING 174 MG/DL (70-100); POTASSIUM SERUM 3.8 MEQ/L (3.5-5.1); SODIUM LEVEL 135 MEQ/L (136-145)
[2021-04-09 08:00] VITALS: BP 113/83
[2021-04-09] MEDS: LEVEMIR (INSULIN DETEMIR) 1 UNITS/0.01ML SC SCH (08:10)
[2021-04-09] MEDS: APIXABAN 5 MG TAB (ELIQUIS) PO SCH (08:10)
[2021-04-09] MEDS: BACTRIM 160MG/800MG DS TAB PO SCH (08:10)
[2021-04-09 08:14] VITALS: BP 113/83
[2021-04-09] MEDS: METOPROLOL TARTRATE 100 MG TAB PO SCH (08:14)
--- NOTE | 2021-04-09 09:54 | DS.PDOC ---
Discharge Summary General Date of Admission Apr 05, 2021 at 23:15 Date of Discharge 04/09/21 Attending Physician: JELYL ESPINOZA MD Discharge Summary PROCEDURES PERFORMED DURING STAY: None ADMITTING DIAGNOSES: 1. Hyperosmolar Hyperglycemic Syndrome 2/2 acute LLE cellulitis DISCHARGE DIAGNOSES: 1. Hyperglycemia, poorly controlled 2. LLE cellulitis 3. Aflutter, poorly controlled COMPLICATIONS/CHIEF COMPLAINT: Hhs (Hypothenar Hammer Syndrome). HISTORY OF PRESENT ILLNESS: Jonathon is 30M DM, A flutter s/p cardioversion, NURIS (not on CPAP), obesity who presented to ED with swelling, redness, pain LLE that began 4days prior and had been worsening. Reported folliculitis w/ acne on lateral side of LLE that was popped by his gf. Reported similar folliculitis w/ acne in RLE, but denied induced trauma, skin changes, pain. Pt was also found to have BS 530 w/ elevated ketones. He received 12U regular insulin, but BS remained in 400s. EKG in ED significant for Aflutter w/ HR 110 and pt started on Atenolol 25mg and Xarelto, as per Cardiology (Dr. Bernardo) recommendations. Pt reported prior cardioversion at [facility] in [place], [place] and was anticoagulated w/ Xarelto. Denied anticoagulation for past yr. Denied fevers/chills, chest pain, palpitations, abd pain, n/v. Venous u/s in ED neg for DVT. Labs in ED significant for Anion GAP 19. ABG significant for pH 7.3 CHADsVASc Score 1. HOSPITAL COURSE: Pt placed on insulin drip (125ml/hr) and admitted to ICU for titration and management of BS. BS remained elevated (340) and insulin drip titrated off w/ levemir bridge 40U BID, insulin SS. Pt asx, but BS remained poorly controlled (BS 374) and titrated up Levemir 50U BID w/ insulin SS. Pt's continued to require more than 100U insulin/day and BS remained elevated. BS finally well controlled (174) w/ Levemir 50U BID, Humalog 10U TID, insulin SS. Pt remained asx despite consistent hyperglycemia and medical management will need to be further optimized outpatient. Discussed w/ pt the importance of lifestyle modifications in addition to compliance w/ BS monitoring and insulin use. Pt counseled on sx hypoglycemia and proper use of diabetic tools. Pt started on IV vancomycin upon admission for suspected LLE cellulitis. He remained afebrile, w/out leukocytosis. Blood cx negative, wound cx unattainable. LLE soft tissue u/s negative for abscess. Pt reported prior MRSA+ status. Pt complained of RUE swelling w/out pain and RUE vascular u/s performed (negative). LLE cellulitis was marked and infxn remained well controlled. His LLE wounds remained dry w/ minimal serosanguinous discharge. Warmth, redness, swelling, pain, mobility improved after 3days IV vancomycin and abx transitioned to PO Bactrim. No side effects noted on day2 Bactrim. Pt started on Metoprolol 25mg BID, Xarelto. He continued to go in and out of Aflutter w/ poorly controlled tachycardia (HR 110-140 intermittently). Echocardiogram insignificant for structural damage/abnormalities, LVEF 65%. Pt transitioned from Xarelto to Eliquis 5mg. Repeat EKG significant for Aflutter and LVH by Francisco Javier criteria. Cardiology (Dr. Mahmood) recommended increasing Metoprolol and maintaining anticoagulant despite CHADsVASc score 1. Advised that pt f/u w/ Cardiology upon discharge for future ablation. Cardioversion at this time would be futile, as the pt continues to go in and out of Aflutter. Pt started on 100mg Metoprolol BID. He was noted to still be in and out of Aflutter w/ intermittent tachycardia (HR 124). Pt received titrated nocturnal O2 while sleeping w/out complications. Pt performed home sleep study and reports noncompliance w/ CPAP at home. Pt advised to f/u w/ Pulmonology upon d/c for formal sleep study. DISCHARGE MEDICATIONS: Please see below. ALLERGIES: Please see below. PHYSICAL EXAMINATION ON DISCHARGE: VITAL SIGNS: Please see below. GENERAL: laying in bed, alert and awake, NAD HEENT: NC/AT, EOMI, nares patent, moist mucous membranes NECK: supple CARDIOVASCULAR EXAMINATION: normal heart sounds, RRR, no MRG RESPIRATORY EXAMINATION: CTA b/l, no WRR, no accessory muscles used ABDOMINAL EXAMINATION: normal BS, soft, nontender, nondistended EXTREMITIES: no significant edema, normal ROM SKIN: LLE minimal edema, multiple sites of folliculitis w/out bleeding/discharge along lateral LLE, redness improved from marked redness (04/07), no warmth/crepitus/soft tissue abscesses appreciated; RLE edema, multiple sites of folliculitis w/out discharge/bleeding/warmth/redness NEUROLOGICAL EXAMINATION: no FND, strength 5/5 PSYCHIATRIC EXAMINATION: AOx3, normal mood/affect LABORATORY DATA: Please see below. IMAGING: Duplex vascular u/s LLE (04/05) No evidence of deep vein thrombosis Nonvascular LLE u/s (04/06) Diffuse subcutaneous soft tissue edema of the left calf laterally. At the left mid calf laterally there are 2 superficial fluid collections, clinically appearing as blisters, as described above. No other focal fluid collections are identified. Echocardiogram (04/06) Report pending Duplex vascular u/s RUE (04/07) Negative venous duplex examination of right upper extremity. PROGNOSIS: good ACTIVITY: As tolerated DIET: Diabetic diet DISCHARGE PLAN: 1. Hyperglycemia- F/u PCP within 7days 80U Lantus QAM 10U Humalog TID *Insulin vials w/ syringes and necessary diabetic tools Metformin 500mg PO BID Strict diabetic diet, regular physical activity, weight loss 2. Aflutter- F/u Cardiology (Dr. Mahmood) 7-10days Metoprolol succinate 200mg QD Eliquis 5mg QD 3. LLE cellulitis- F/u PCP Bactrim 2tablets BID x5days 4. NURIS noncompliance- F/u Pulmonology (Dr. Dietz) 7-10days DISPOSITION: home DISCHARGE INSTRUCTIONS: 1. F/u PCP within 7days 2. F/u Cardiology (Dr. Mahmood), 7-10days 4. F/u Pulmonology (Dr. Dietz), 7-10days ITEMS TO FOLLOWUP ON ON OUTPATIENT: 1. PCP- uncontrolled hyperglycemia management 2. Cardiology- poorly controlled tachycardia w/ Aflutter, possible ablation 3. Pulm- noncompliant NURIS, possible sleep study DISCHARGE CONDITION: Stable TIME SPENT ON DISCHARGE: 20 minutes. Vital Signs/I&Os Vital Signs Date Time Temp Pulse Resp B/P (MAP) Pulse Ox O2 Delivery O2 Flow Rate FiO2 04/09/21 08:14 75 113/83 04/09/21 08:00 96.9 20 96 Room Air I&O- Last 24 Hours up to 6 AM 8/12/21 06:00 Intake Total 3110 ml Output Total 3700 ml Balance -590 ml Laboratory Data Labs 24H Laboratory Tests 2 04/08/21 12:20: Bedside Glucose (Misc Panel) 424H 04/08/21 17:32: Bedside Glucose (Misc Panel) 257H 04/08/21 20:00: Bedside Glucose (Misc Panel) 304H 04/09/21 00:07: Bedside Glucose (Misc Panel) 220H 04/09/21 05:25: Immature Granulocyte % (Auto) 0.5, Neutrophils (%) (Auto) 42.4, Lymphocytes (%) (Auto) 44.2H, Monocytes (%) (Auto) 9.5H, Eosinophils (%) (Auto) 2.8, Basophils (%) (Auto) 0.6, Neutrophils # (Auto) 2.7, Lymphocytes # (Auto) 2.8, Monocytes # (Auto) 0.6, Eosinophils # (Auto) 0.2, Basophils # (Auto) 0.0, Nucleated Red Blood Cells % (auto) 0.0, Anion Gap 6L, Glomerular Filtration Rate > 60.0, Calcium Level 8.6 CBC/BMP Laboratory Tests 04/09/21 05:25 FSBS Laboratory Tests Test 04/08/21 12:20 04/08/21 17:32 04/08/21 20:00 04/09/21 00:07 Range/Units Bedside Glucose (Misc Panel) 424 257 304 220 70-105 MG/DL Microbiology Microbiology 04/05/21 Blood Culture - Preliminary, Resulted No Growth after 72 hours. All specime... 04/05/21 Blood Culture - Preliminary, Resulted No Growth after 72 hours. All specime... Discharge Medications Scheduled Apixaban (Eliquis) 5 Mg Tablet, 5 MG PO BID Insulin Glargine (Lantus) 100 Unit/1 Ml Vial, 80 UNITS SC QAM Insulin Human Lispro (Humalog) 100 Unit/1 Ml Vial, 10 UNITS SC TID Before each meal Metformin HCl (Metformin HCl ER) 500 Mg Tab.er.24h, 500 MG PO BID Allergies Coded Allergies: No Known Drug Allergies (Verified Allergy, Unknown, 02/11/21) Sena Barker DO Apr 09, 2021 09:54
[2021-04-09] MEDS ORDERED: METF-838 PO ×2 (11:02→11:04)
[2021-04-09] MEDS ORDERED: BD I1MIS14 SC (11:02)
[2021-04-09] MEDS ORDERED: INSUHUMDS SC (11:02)
[2021-04-09] MEDS ORDERED: INSULANT SC (11:02)
[2021-04-09] MEDS ORDERED: BACTDSTA PO (12:12)
[2021-04-09] MEDS ORDERED: METO200T28 PO (12:12)
[2021-04-09] MEDS ORDERED: ADME100I SC (12:33)
[2021-04-09] MEDS ORDERED: INSU100V8 SQ (12:33)
[2021-04-12 21:09] LABS: ISLET CELL ANTIBODIES Negative (Neg:<1:1)
== END 2021-04-09 14:35 | disposition home or self-care (01) | DRG 420 ==
LOC: M ED 17:59 → M ED INP 23:15 → ENRESERV 23:58 → M ICU 04-06 00:40 → M PCU 04-07 16:30
PROVIDERS: ADMIT Family Medicine; ATTEND Internal Medicine
DX: E10.65 Type 1 diabetes mellitus with hyperglycemia (principal); I48.92 Unspecified atrial flutter; L03.116 Cellulitis of left lower limb; G47.33 Obstructive sleep apnea (adult) (pediatric); Z79.4 Long term (current) use of insulin; H54.8 Legal blindness, as defined in USA; Z91.14 Patient's other noncompliance with medication regimen

== ENCOUNTER 2021-04-28 14:46 | Emergency (ER) | payer OTHER ==
[~2021-04-28] VITALS: Ht 185.4 cm; Wt 116.4 kg
[~2021-04-28 14:46] MED LIST changes: +ADME100I SC; +ALCO1MED8 XX; +ASSU1MIS54 XX; +BACTDSTA PO; +BD I1MIS14 SC; +ELIQ5TAB PO; +GLUCMIS7 XX; +INSU100V8 SQ; +INSUHUMDS SC; +INSULANT SC; +LANC1COM MC; +METF-838 PO; +METO200T28 PO
[2021-04-28 15:23] VITALS: BP 155/85
[2021-04-29] MEDS ORDERED: HYDR25OIN TOP (20:19)
[2021-04-29] MEDS ORDERED: CIPR-249 PO (20:19)
[2021-04-29] MEDS ORDERED: LIDO5OIN19 TOP (20:19)
== END 2021-04-28 21:38 | disposition left against medical advice (07) ==
LOC: M ED 14:46
DX: Z53.21 Procedure and treatment not carried out due to patient leaving prior to being seen by health care provider (principal)

== ENCOUNTER 2021-04-29 13:47 | Emergency (ER) | payer OTHER ==
[~2021-04-29] VITALS: Ht 188 cm; Wt 117.6 kg
[2021-04-29] MEDS: NS 1,000 ML IV ONE ×2 (17:40→18:11)
[2021-04-29] MEDS ORDERED: NORCO, ANEXSIA 5/325MG TABLET (HYDROcodone/ACETAMINOPHEN) PO ONE ×2 (17:40→21:45)
[2021-04-29 18:39] LABS: VENOUS BASE EXCESS -0.2 (-2.0-2.0); VENOUS HCO3 25.3 MEQ/L (23.0-27.0); VENOUS O2 SATURATION 92.6 % (60.0-80.0); VENOUS PARTIAL PRESSURE CO2 44.6 mmHg (38.0-50.0); VENOUS PARTIAL PRESSURE O2 69.1 mmHg (30.0-50.0); VENOUS PH 7.372 UNITS (7.330-7.430); VENOUS STANDARD HCO3 24.2 MEQ/L; VENOUS TOTAL CO2 26.7 MEQ/L (24.0-28.0)
[2021-04-29 18:52] LABS: HEMATOCRIT 41.6 % (42.0-52.0); HEMOGLOBIN 13.6 g/dl (13.5-17.5); RED BLOOD COUNT 4.81 10^6/uL (4.30-6.10); WHITE BLOOD COUNT 3.7 10^3/uL (4.0-10.0)
[2021-04-29 18:53] LABS: BASO % 1.1 % (0.0-1.0); EOS # 0.1 10^3/uL (0.0-0.5); EOS % 1.9 % (0.0-3.0); LYMPH # 1.7 10^3/uL (1.5-5.0); LYMPH % 46.6 % (24.0-44.0); MEAN CORPUSCULAR HEMOGLOBIN 28.3 pg (27.0-33.0); MEAN CORPUSCULAR HGB CONC 32.7 g/dl (32.0-36.5); MEAN CORPUSCULAR VOLUME 86.5 fl (80.0-96.0); MONO # 0.4 10^3/uL (0.0-0.8); MONO % 10.5 % (2.0-8.0); NEUTROPHILS # 1.5 10^3/uL (1.5-8.5); NEUTROPHILS % 39.6 % (36.0-66.0); PLATELET COUNT, AUTOMATED 250 10^3/uL (150-450)
[2021-04-29 19:13] LABS: HEMOGLOBIN A1c 12.1 %
[2021-04-29 19:27] LABS: ACETONE/KETONE 2.41 MG/DL (<2.81); ALBUMIN 3.4 GM/DL (3.2-5.2); ALT/SGPT 105 U/L (12-78); BILIRUBIN,DIRECT 0.2 MG/DL (0.0-0.2); BILIRUBIN,TOTAL 0.4 MG/DL (0.2-1.0); BLOOD UREA NITROGEN 8 MG/DL (7-18); C REACTIVE PROTEIN QUANTITATIV 0.65 MG/DL (0.00-0.30); CALCIUM LEVEL 9.3 MG/DL (8.5-10.1); CARBON DIOXIDE LEVEL 28 MEQ/L (21-32); CHLORIDE LEVEL 101 MEQ/L (98-107); CREATININE FOR GFR 0.78 MG/DL (0.70-1.30); GLOMERULAR FILTRATION RATE > 60.0 (>60); GLUCOSE, FASTING 384 MG/DL (70-100); POTASSIUM SERUM 4.4 MEQ/L (3.5-5.1); SODIUM LEVEL 133 MEQ/L (136-145); TOTAL PROTEIN 7.9 GM/DL (6.4-8.2)
[2021-04-29 19:49] LABS: OSMOLALITY SERUM 296 MOSM/KG (275-295)
[2021-04-29] MEDS ORDERED: CIPROFLOXACIN 500MG TABLET PO ONE (20:15)
[2021-04-29] MEDS ORDERED: LIDOCAINE 2% JELLY 6 ML SYRINGE TOP ONE (20:15)
[2021-04-29] MEDS ORDERED: LIDO5OIN19 TOP (20:19)
[2021-04-29] MEDS ORDERED: HYDR25OIN TOP (20:19)
[2021-04-29] MEDS ORDERED: CIPR-249 PO (20:19)
[2021-04-29] MEDS ORDERED: LIDOCAINE 2% 5ML JELLY UROJET TOP ONE (20:55)
[2021-04-29 21:25] LABS: GC DNA AMPLIFICATION NEGATIVE (NEGATIVE)
[2021-04-29 21:40] VITALS: BP 141/91
[2021-04-30 06:44] LABS: ERYTHROCYTE SEDIMENTATION RATE 7 mm/hr (0-15)
== END 2021-04-29 21:55 | disposition home or self-care (01) ==
LOC: M ED 13:47
DX: N48.1 Balanitis (principal); E11.9 Type 2 diabetes mellitus without complications; G47.33 Obstructive sleep apnea (adult) (pediatric); I48.92 Unspecified atrial flutter; Z79.4 Long term (current) use of insulin; Z79.01 Long term (current) use of anticoagulants; Z79.899 Other long term (current) drug therapy